=== PATIENT | female | born 1985 | race Caucasian/White ===

== ENCOUNTER 2017-08-20 04:54 | Emergency (ER) | payer SELFPAY ==
[~2017-08-20] VITALS: Ht 162.6 cm; Wt 65.8 kg
--- NOTE | 2017-08-20 05:02 | NUR ---
[facility] 39[facility] PER EMS "PT FOUND WALKING IN AND OUT OF TRAFFIC, AND PT ADMITS TO [facility]" PT WITH NO COMPLAINTS. PT REFUSES TO ANSWER QUESTIONS AT THIS TIME. RR EVEN AND UNLABORED. NO SOB NOTED. NAD NOTED. NO NVD AT THIS TIME. PT GOWNED AND PLACED ON MONITOR. PT DENIES HI / SI. PT RELAXED AND DIRECTABLE.
[2017-08-20] MEDS ORDERED: OLANZAPINE 5 MG/TAB.RAPDIS ONE (05:17)
[2017-08-20] MEDS ORDERED: OLANZAPINE 5 MG TABLET PO ONE (05:30)
[2017-08-20] MEDS ORDERED: LORAZEPAM INJ 2 MG/ML VIAL ONE (06:28)
[2017-08-20] MEDS ORDERED: OLANZAPINE 5 MG/TAB.RAPDIS PO ONE (06:30)
[2017-08-20] MEDS ORDERED: LORAZEPAM INJ 2 MG/ML VIAL IM ONE (06:30)
--- NOTE | 2017-08-20 07:32 | NUR ---
REPORT GIVEN TO ROGER BONILLA FOR GIS[facility]LE.
--- NOTE | 2017-08-20 09:05 | NUR ---
Patient is resting comfortably in bed with eyes closed. Easily aroused. VSS
--- NOTE | 2017-08-20 11:15 | NUR ---
PT PROVIDED WITH JUICE PER REQUEST. ABLE TO TOELRATE PO INTAKE. VSS. Pt ambulatory with a steady gait.
--- NOTE | 2017-08-20 12:05 | NUR ---
Patient discharged to home in stable condition. Written and verbal after care instructions given. Patient verbalizes understanding of instruction.
[2017-08-20 12:09] VITALS: BP 115/75
== END 2017-08-20 12:10 | disposition home or self-care (01) ==
LOC: ER 04:56
DX: F10.129 Alcohol abuse with intoxication, unspecified (principal); R79.89 Other specified abnormal findings of blood chemistry
CPT/HCPCS: 82962; 96372; 99283; A4606; J2060; Z7610